=== PATIENT | male | born 1975 | race Caucasian/White ===

== ENCOUNTER 2017-02-17 14:25 | Emergency (ER) | payer SELFPAY ==
[~2017-02-17] VITALS: Ht 160 cm; Wt 51.7 kg
[2017-02-17 14:45] VITALS: BP 92/58; Ht 160 cm; Wt 51.7 kg
== END 2017-02-17 16:48 | disposition home or self-care (01) ==
LOC: ED 14:25
DX: B34.9 Viral infection, unspecified (principal)
CPT/HCPCS: 87804

== ENCOUNTER 2017-03-02 15:31 | Emergency (ER) | payer SELFPAY ==
[~2017-03-02] VITALS: Ht 157.5 cm; Wt 51.7 kg
[2017-03-02 15:39] VITALS: Ht 157.5 cm; Wt 51.7 kg
[2017-03-02 18:09] VITALS: BP 100/64
== END 2017-03-02 18:09 | disposition home or self-care (01) ==
LOC: ED 15:31
DX: J06.9 Acute upper respiratory infection, unspecified (principal)
CPT/HCPCS: 82962

== ENCOUNTER 2019-06-30 19:39 | Inpatient (IN) | payer OTHER ==
[~2019-06-30] VITALS: Ht 157.5 cm; Wt 53.2 kg
[2019-06-30 19:55] VITALS: Ht 157.5 cm; Wt 53.2 kg
[2019-06-30 20:49] LABS: RED CELL DISTRIBUTION WIDTH 13.6 % (11.5-14.5)
[2019-06-30 20:52] LABS: PLATELET COUNT 471 x10^3mcL (130-400)
[2019-06-30 21:04] LABS: BAND NEUTROPHIL 9 % (0-10); BASOPHIL 0 % (0-2); MONOCYTE 2 % (0-7); SEGMENTED NEUTROPHILS 85 % (37-75)
[2019-06-30 21:05] LABS: PLATELET MORPHOLOGY PLATELETS INCREASED; rbc morphology (normal/abnorm) NORMAL (NORMAL)
[2019-06-30 21:12] LABS: BILIRUBIN TOTAL 0.5 mg/dL (0.20-1.00); CALCIUM 9.2 mg/dL (8.5-10.1); CARBON DIOXIDE 20.4 mmol/L (21-32); CREATININE SERUM 2.5 mg/dL (0.7-1.3)
[2019-06-30 21:18] LABS: ALBUMIN 2.1 g/dL (3.4-5.0)
[2019-06-30 21:19] LABS: POTASSIUM SERUM 5.7 mmol/L (3.5-5.1)
[2019-06-30 23:34] VITALS: BP 139/77
[2019-06-30 23:40] LABS: RED BLOOD CELLS 2.53 M/mm3 (4.52-5.90)
[2019-07-01] VITALS (8 sets, daily range): BP systolic 96–126; BP diastolic 48–70
[2019-07-01 00:02] LABS: CHOLESTEROL/HDL RATIO 6.5
[2019-07-01] MEDS ORDERED: ASPIRIN CHILDRE81 MG PO (00:07)
[2019-07-01] MEDS ORDERED: FORTAMET500 M1 PO (00:07)
[2019-07-01 00:22] LABS: IRON 34 ug/dL (65-170); TOTAL IRON BINDING CAPACITY 130 ug/dL (250-450)
[2019-07-01 01:22] LABS: CALCIUM 8.6 mg/dL (8.5-10.1); CARBON DIOXIDE 24.9 mmol/L (21-32); MAGNESIUM 2.3 mg/dL (1.8-2.4); PHOSPHOROUS 4.4 mg/dL (2.5-4.9); POTASSIUM SERUM 4.2 mmol/L (3.5-5.1)
[2019-07-01 05:30] LABS: BASOPHIL % 0.1 % (0-2); PLATELET COUNT 398 x10^3mcL (130-400); RED CELL DISTRIBUTION WIDTH 13.3 % (11.5-14.5)
[2019-07-01 05:43] LABS: CALCIUM 8.3 mg/dL (8.5-10.1); CARBON DIOXIDE 24.6 mmol/L (21-32); CREATININE SERUM 1.7 mg/dL (0.7-1.3); PHOSPHOROUS 2.8 mg/dL (2.5-4.9); POTASSIUM SERUM 3.4 mmol/L (3.5-5.1)
[2019-07-01 08:22] LABS: CALCIUM 8.3 mg/dL (8.5-10.1); CARBON DIOXIDE 25.9 mmol/L (21-32); CREATININE SERUM 1.6 mg/dL (0.7-1.3); MAGNESIUM 2.2 mg/dL (1.8-2.4); PHOSPHOROUS 3.3 mg/dL (2.5-4.9); POTASSIUM SERUM 3.3 mmol/L (3.5-5.1)
[2019-07-01 16:18] LABS: microscopic required? YES; urine erythrocyte 2+ (NEGATIVE)
[2019-07-01 16:39] LABS: AMPHETAMINE QUAL UR NONE DETECTED (See below)
[2019-07-02 05:29] VITALS: BP 125/69
[2019-07-02 06:56] LABS: PLATELET COUNT 395 x10^3mcL (130-400); RED CELL DISTRIBUTION WIDTH 13.6 % (11.5-14.5)
[2019-07-02 07:35] VITALS: BP 140/68
[2019-07-02 08:33] LABS: CALCIUM 8.4 mg/dL (8.5-10.1); CARBON DIOXIDE 25.2 mmol/L (21-32); CREATININE SERUM 1.5 mg/dL (0.7-1.3); MAGNESIUM 2.1 mg/dL (1.8-2.4); PHOSPHOROUS 3.7 mg/dL (2.5-4.9); POTASSIUM SERUM 3.5 mmol/L (3.5-5.1)
[2019-07-02 09:09] LABS: BAND NEUTROPHIL 1 % (0-10); BASOPHIL 0 % (0-2); MONOCYTE 4 % (0-7); SEGMENTED NEUTROPHILS 93 % (37-75)
[2019-07-02 09:10] LABS: rbc morphology (normal/abnorm) ABNORMAL (NORMAL)
[2019-07-02 09:12] LABS: PLATELET MORPHOLOGY PLATELETS NORMAL
[2019-07-02 12:13] VITALS: BP 133/74
[2019-07-02 16:30] VITALS: BP 133/62
[2019-07-02 21:25] VITALS: BP 137/70
[2019-07-03 06:25] VITALS: BP 131/64
[2019-07-03 06:34] LABS: RED CELL DISTRIBUTION WIDTH 13.7 % (11.5-14.5)
[2019-07-03 06:51] LABS: CALCIUM 8.5 mg/dL (8.5-10.1); CHLORIDE SERUM 105 mmol/L (98-107); CREATININE SERUM 1.3 mg/dL (0.7-1.3); GFR1 > 60 mL/min; GLUCOSE SERUM 108 mg/dL (74-106); MAGNESIUM 1.7 mg/dL (1.8-2.4); PHOSPHOROUS 3.1 mg/dL (2.5-4.9); SODIUM SERUM 141 mmol/L (136-145)
[2019-07-03 08:23] LABS: PLATELET COUNT 446 x10^3mcL (130-400)
[2019-07-03 09:22] VITALS: BP 87/48
[2019-07-03 10:28] VITALS: BP 102/57
[2019-07-03 12:02] LABS: BAND NEUTROPHIL 3 % (0-10); BASOPHIL 0 % (0-2); MONOCYTE 3 % (0-7); SEGMENTED NEUTROPHILS 87 % (37-75)
[2019-07-03 12:03] LABS: PLATELET MORPHOLOGY PLATELETS INCREASED; rbc morphology (normal/abnorm) ABNORMAL (NORMAL)
[2019-07-03 13:34] VITALS: BP 148/84
[2019-07-03 17:59] VITALS: BP 91/59
[2019-07-03 21:07] VITALS: BP 116/68
[2019-07-04 06:51] VITALS: BP 103/57
[2019-07-04 06:59] LABS: CALCIUM 8.1 mg/dL (8.5-10.1); CARBON DIOXIDE 24.4 mmol/L (21-32); CHLORIDE SERUM 104 mmol/L (98-107); CREATININE SERUM 1.3 mg/dL (0.7-1.3); GFR1 > 60 mL/min; GLUCOSE SERUM 208 mg/dL (74-106); POTASSIUM SERUM 3.4 mmol/L (3.5-5.1); SODIUM SERUM 139 mmol/L (136-145)
[2019-07-04 07:18] LABS: BASOPHIL % 0.2 % (0-2); PLATELET COUNT 369 x10^3mcL (130-400); RED CELL DISTRIBUTION WIDTH 13.6 % (11.5-14.5)
[2019-07-04 09:08] VITALS: BP 139/73
[2019-07-04 12:57] VITALS: BP 108/58
[2019-07-04 17:40] VITALS: BP 129/80
[2019-07-04 20:44] VITALS: BP 139/76
[2019-07-05 04:48] VITALS: BP 93/55
[2019-07-05 06:46] LABS: BASOPHIL % 0.1 % (0-2); RED CELL DISTRIBUTION WIDTH 13.5 % (11.5-14.5)
[2019-07-05 07:13] LABS: CALCIUM 7.7 mg/dL (8.5-10.1); CREATININE SERUM 1.5 mg/dL (0.7-1.3); POTASSIUM SERUM 3.5 mmol/L (3.5-5.1)
[2019-07-05 07:43] LABS: PLATELET COUNT 468 x10^3mcL (130-400)
[2019-07-05 08:00] VITALS: BP 100/62
[2019-07-05 12:15] VITALS: BP 129/69
[2019-07-05 13:05] LABS: rbc morphology (normal/abnorm) ABNORMAL (NORMAL)
[2019-07-05 16:20] VITALS: BP 119/71
[2019-07-05 21:15] VITALS: BP 112/87
[2019-07-06 05:12] VITALS: BP 139/71
[2019-07-06 08:45] VITALS: BP 128/69
[2019-07-06 08:58] LABS: RED CELL DISTRIBUTION WIDTH 14.2 % (11.5-14.5)
[2019-07-06 09:03] LABS: BASOPHIL % 0 % (0-2)
[2019-07-06 11:21] LABS: PLATELET COUNT 569 x10^3mcL (130-400)
[2019-07-06 13:36] VITALS: BP 129/63
[2019-07-06 18:43] VITALS: BP 146/81
[2019-07-06 22:00] VITALS: BP 128/69
[2019-07-07 04:51] VITALS: BP 162/82
[2019-07-07 06:39] VITALS: BP 143/73
[2019-07-07 07:08] LABS: CARBON DIOXIDE 27.7 mmol/L (21-32); CHLORIDE SERUM 103 mmol/L (98-107); GFR1 > 60 mL/min; GLUCOSE SERUM 241 mg/dL (74-106); POTASSIUM SERUM 3.2 mmol/L (3.5-5.1); SODIUM SERUM 137 mmol/L (136-145)
[2019-07-07 08:20] VITALS: BP 104/56
[2019-07-07 08:30] LABS: PLATELET COUNT 514 x10^3mcL (130-400)
[2019-07-07 10:05] LABS: RED CELL DISTRIBUTION WIDTH 14.7 % (11.5-14.5)
[2019-07-07 10:12] LABS: BAND NEUTROPHIL 2 % (0-10); MONOCYTE 21 % (0-7); SEGMENTED NEUTROPHILS 35 % (37-75)
[2019-07-07 10:13] LABS: rbc morphology (normal/abnorm) ABNORMAL (NORMAL)
[2019-07-07 10:14] LABS: PLATELET MORPHOLOGY PLATELETS INCREASED
[2019-07-07 12:15] VITALS: BP 116/70
[2019-07-07 16:11] VITALS: BP 130/53
[2019-07-07 20:32] VITALS: BP 128/73
[2019-07-08] VITALS (7 sets, daily range): BP systolic 90–149; BP diastolic 48–80
[2019-07-08 06:59] LABS: RED CELL DISTRIBUTION WIDTH 14.2 % (11.5-14.5)
[2019-07-08 07:06] LABS: CALCIUM 8.4 mg/dL (8.5-10.1); CARBON DIOXIDE 26.4 mmol/L (21-32); CHLORIDE SERUM 107 mmol/L (98-107); GFR1 > 60 mL/min; GLUCOSE SERUM 166 mg/dL (74-106); POTASSIUM SERUM 4.2 mmol/L (3.5-5.1); SODIUM SERUM 139 mmol/L (136-145)
[2019-07-08 09:41] LABS: BAND NEUTROPHIL 0 % (0-10); SEGMENTED NEUTROPHILS 62 % (37-75)
[2019-07-08 09:42] LABS: MONOCYTE 8 % (0-7); PLATELET MORPHOLOGY PLATELETS INCREASED; rbc morphology (normal/abnorm) ABNORMAL (NORMAL)
[2019-07-08 09:43] LABS: PLATELET COUNT 535 x10^3mcL (130-400)
[2019-07-09 06:01] VITALS: BP 152/78
[2019-07-09 06:40] LABS: BASOPHIL % 0.4 % (0-2); RED CELL DISTRIBUTION WIDTH 14.4 % (11.5-14.5)
[2019-07-09 07:03] LABS: CALCIUM 8.3 mg/dL (8.5-10.1); CHLORIDE SERUM 105 mmol/L (98-107); CREATININE SERUM 0.9 mg/dL (0.7-1.3); GFR1 > 60 mL/min; GLUCOSE SERUM 178 mg/dL (74-106); POTASSIUM SERUM 3.7 mmol/L (3.5-5.1); SODIUM SERUM 139 mmol/L (136-145)
[2019-07-09 07:42] LABS: PLATELET COUNT 548 x10^3mcL (130-400)
[2019-07-09] MEDS ORDERED: LEVAQUIN500 M1 PO (09:02)
[2019-07-09] MEDS ORDERED: PEPCID AC10 M2 PO (09:03)
[2019-07-09] MEDS ORDERED: IRON65 MG PO (09:03)
[2019-07-09 09:10] VITALS: BP 143/71
[2019-07-09 12:12] VITALS: BP 121/78
[2019-07-09 13:23] VITALS: BP 121/78
== END 2019-07-09 16:20 | disposition home or self-care (01) | DRG 720 ==
LOC: ED 19:39 → MU 22:30 → DU 22:30 → IC 22:30 → DU 07-01 17:13 → MU 07-03 20:42
PROVIDERS: Emergency Medicine; Internal Medicine; ADMIT Family Medicine
PROC: 0DB68ZX Excision of Stomach, Via Natural or Artificial Opening Endoscopic, Diagnostic (ICD-10-PCS; 2019-07-08)
PROC: 0DJD8ZZ Inspection of Lower Intestinal Tract, Via Natural or Artificial Opening Endoscopic (ICD-10-PCS; 2019-07-08)
PROC: 30233N1 Transfusion of Nonautologous Red Blood Cells into Peripheral Vein, Percutaneous Approach (ICD-10-PCS; principal; 2019-07-08 08:00)
PROC: 0DB48ZX Excision of Esophagogastric Junction, Via Natural or Artificial Opening Endoscopic, Diagnostic (ICD-10-PCS; 2019-07-08 08:00)
DX: A41.51 Sepsis due to Escherichia coli [E. coli] (principal); N17.0 Acute kidney failure with tubular necrosis; E43 Unspecified severe protein-calorie malnutrition; E11.10 Type 2 diabetes mellitus with ketoacidosis without coma; E11.51 Type 2 diabetes mellitus with diabetic peripheral angiopathy without gangrene; K31.84 Gastroparesis; E87.1 Hypo-osmolality and hyponatremia; E11.43 Type 2 diabetes mellitus with diabetic autonomic (poly)neuropathy; E86.0 Dehydration; E87.8 Other disorders of electrolyte and fluid balance, not elsewhere classified; E87.5 Hyperkalemia; D53.9 Nutritional anemia, unspecified; Z89.422 Acquired absence of other left toe(s); Z91.19 Patient's noncompliance with other medical treatment and regimen; N39.0 Urinary tract infection, site not specified; Z20.828 Contact with and (suspected) exposure to other viral communicable diseases
CPT/HCPCS: 36600; 43235; 45378; 82962; 84207; 84425; C9113; G0378; G0480; J0696; J1200; J1610; J1815; J1956; J2250; J2270; J2310; J2405; J2543; J2765; J3010; J3490; J7030; J7040; J7050; P9016; Q0092; Q0163; U0003-CS